=== PATIENT | male | born 1975 | race Two or more races ===

== ENCOUNTER 2019-05-27 05:42 | Inpatient (IN) | payer MEDICAID ==
[~2019-05-27] VITALS: Ht 188 cm; Wt 149.5 kg
[2019-05-27 06:28] LABS: Basophils # (auto) 0.1 uL; Basophils % (auto) 0.7 % (0.0-2.0); Eosinophils # (auto) 0 uL; Eosinophils % (auto) 0.3 % (0.0-7.0); Hematocrit 49.1 % (41.0-53.0); Hemoglobin 16.8 g/dL (13.5-17.5); Lymphocytes # (auto) 3.1 uL; Mean Corpuscular Hemoglobin 29.8 pg (28.0-32.0); Mean Corpuscular Hgb Conc. 34.3 g/dL (32.0-36.0); Mean Corpuscular Volume 86.7 fL (80.0-100.0); Monocytes # (auto) 0.8 uL; Monocytes % (auto) 7.5 % (0.0-12.0); Neutrophils # (auto) 6.6 uL; Neutrophils % (auto) 62.5 % (37.0-80.0); Platelet Count (auto) 168 10^3/uL (140-450); Red Blood Cells 5.66 10^6/uL (4.5-5.90); Red Cell Distribution Width 13.8 % (11.8-14.3); White Blood Cell 10.6 10^3/uL (4.4-10.8)
[2019-05-27 06:46] LABS: Albumin 3.7 g/dL (3.4-5.0); Calcium 8.9 mg/dL (8.5-10.1); Potassium 4.6 mmol/L (3.5-5.1)
[2019-05-27 06:52] LABS: BUN/Creatinine Ratio 9.9; Bilirubin, Total 1.4 mg/dL (0.2-1.0); Total Protein 8.1 g/dL (6.4-8.2)
[2019-05-27] MEDS ORDERED: CLOPIDOGREL BISULFATE 75 MG TAB PO ONE (07:30)
[2019-05-27] MEDS ORDERED: ATORVASTATIN 20 MG TAB PO ONE (07:30)
[2019-05-27] MEDS ORDERED: LIDOCAINE 2%HCL (LOCAL ANESTH.) INJ 20ML MDV ONE ×2 (07:42→09:29)
[2019-05-27] MEDS ORDERED: IOHEXOL 350 MG/ML 100ML IJ ONE ×2 (07:42→09:28)
[2019-05-27 08:02] LABS: INR 1.01 (0.9-1.15); Partial Thromboplastin Time 28.6 sec (23.64-32.05)
[2019-05-27] MEDS ORDERED: ACETAMINOPHEN 500 MG TAB PO PRN (08:45)
[2019-05-27] MEDS ORDERED: MORPHINE SULF INJ 2 MG/ML SYRINGE 1ML IV PRN (08:45)
[2019-05-27] MEDS ORDERED: hydrALAZINE HCL 20 MG/ML VL IV PRN (08:45)
[2019-05-27] MEDS ORDERED: DEXTROSE (50%) 50ML SYRG IV PRN (09:00)
[2019-05-27] MEDS ORDERED: ANGIOMAX 250 MG VIAL IV ONE ×2 (09:28→09:54)
[2019-05-27] MEDS ORDERED: SODIUM CHL 0.9% 50 ML ONE ×2 (09:28→09:54)
[2019-05-27] MEDS ORDERED: MIDAZOLAM HCL 1MG/1ML-2 ML VIAL ONE (09:28)
[2019-05-27] MEDS ORDERED: fentaNYL CITRATE 100 MCG/2 ML VL ONE (09:29)
[2019-05-27] MEDS ORDERED: VERAPAMIL 2.5MG/ML INJ 2ML VIAL IV ONE (09:32)
[2019-05-27] MEDS ORDERED: LISINOPRIL 10 MG TAB PO SCH (10:00)
[2019-05-27] MEDS ORDERED: HEPARIN SODIUM (PORCINE) 5000 UNITS/ML 1ML VIAL ONE (10:02)
[2019-05-27] MEDS ORDERED: EPTIFIBATIDE INJ (2MG/ML) 10ML VIAL IV ONE ×2 (10:44→10:53)
[2019-05-27] MEDS ORDERED: EPTIFIBATIDE DRIP(0.75MG/ML) 100 ML IV ONE ×2 (10:50→15:09)
[2019-05-27] MEDS: SODIUM CHLORIDE 0.9% 1,000 ML IV SCH ×2 (11:00→20:56)
[2019-05-27] MEDS: EPTIFIBATIDE DRIP(0.75MG/ML) 100 ML IV SCH ×3 (11:00→20:56)
[2019-05-27] MEDS: NITROGLYCERIN 0.4 MG SL TAB SL PRN ×2 (11:15→12:05)
[2019-05-27] MEDS ORDERED: OPTISON 3ml Vial for INJ IV ONE (11:35)
[2019-05-27] MEDS ORDERED: KETOROLAC TROMETH 30 MG/ML 1ML VIAL IV ONE (12:30)
[2019-05-27] MEDS: InsuLIN REG 1unit/0.01ml Soln (100units/ml) SC SCH ×3 (14:00→22:06)
[2019-05-27] MEDS: METOPROLOL TARTRATE 25 MG TAB PO SCH ×2 (14:00→22:05)
[2019-05-27] MEDS: ACCU-CHEK COMFORT CURVE STRIP VI SCH ×3 (14:00→22:06)
[2019-05-27] MEDS: FAMOTIDINE 20 MG TAB PO SCH (14:00)
--- NOTE | 2019-05-27 15:21 | NUR ---
PATIENT ARRIVED TO UNIT VIA WHEELCHAIR. ALERT AND ORIENTED X4. DENIES PAIN, SOB OR CHEST PAIN AND DISTRESS. ORIENTED PATIENT TO UNIT STAFF, CALL LIGHT VISITING HOURS ALL QUESTIONS/ CONCERNS ADDRESSED. RIGHT RADIAL DRESSING DRY AND INTACT NO HEMATOMA PRESENT. BED IN LOWEST LOCKED POSITION CALL LIGHT WITHIN REACH. WILL CONTINUE TO MONITOR
[2019-05-27 15:59] VITALS: BP 107/70
[2019-05-27 17:00] VITALS: BP 107/70
--- NOTE | 2019-05-27 18:00 | NUR ---
CRITICAL LAB PATIENT HAS ELEVATED TROPONIN, VITAL AWARE
[2019-05-27] MEDS: MORPHINE SULF INJ 2 MG/ML SYRINGE 1ML IV PRN (18:17)
[2019-05-27] MEDS: ONDANSETRON HCL 4 MG/2 ML VIAL IV PRN (18:23)
--- NOTE | 2019-05-27 18:26 | NUR ---
CHEST PAIN PROTOCOL PERFORMED PATIENT COMPLAINS OF CHEST PAIN. PROTOCOL PERFORMED. EKG SHOWS SINUS RHYTHM. GAVE MORPHINE. PATIENT VERBALIZED PAIN WENT AWAY.
--- NOTE | 2019-05-27 19:00 | NUR ---
END OF SHIFT NOTE PATIENT ALERT AND ORIENTED X4 DENIES SOB AND CP AT THIS TIME. PATIENT STATED HIS SIDE IS HURTING NOW, BUT VERBALIZED THAT IT HURT BEFORE WHICH IS WHY HE ORIGINALLY WENT TO THE ER. BED IN LOWEST LOCKED POSITION CALL LIGHT WITHIN REACH ENDORSE CARE TO NOC RN
--- NOTE | 2019-05-27 19:30 | NUR ---
Opening Shift Note Assumed care of patient, awake and alert. No S/S of distress/SOB or pain. Insructed on POC and to callfor assist PRN, will continue to monitor for changes Q1hr and PRN. Fall and safety precautions in place. Call light within reach.
--- NOTE | 2019-05-27 19:49 | NUR ---
CRITICAL LAB Received call from Pinky in lab, critical lab value trop 20.2. Pt s/p heart cath today, MD Aponte aware per day shift RN report, lab value trending down. Will continue to monitor
[2019-05-27 21:00] VITALS: BP 125/76
--- NOTE | 2019-05-27 21:58 | NUR ---
HOSPITALIST Paged hospitalist regarding patient request for sleeping pill. Awaiting call back.
[2019-05-27] MEDS: ATORVASTATIN 20 MG TAB PO SCH (22:05)
--- NOTE | 2019-05-27 22:34 | NUR ---
HOSPITALIST Received call back from Sagar Sol NP. New orders received, read back and verified. Will input and carry out.
--- NOTE | 2019-05-27 23:00 | NUR ---
EPTIFIBATIDE DRIP Eptifibatide Drip stopped at this time and disconnected from patient per pharmacy protocol text "to run for 12 hrs, drip started in at 1100 in skill labor."
--- NOTE | 2019-05-27 23:17 | NUR ---
CRITICAL LAB Received call from Danis in lab, critical lab value trop 17.2. Pt s/p heart cath today, MD Aponte aware per day shift RN report, lab value trending down. Will continue to monitor
[2019-05-27] MEDS: TEMAZEPAM 15 MG CAP PO PRN (23:49)
[2019-05-28 04:27] LABS: Basophils # (auto) 0 uL; Basophils % (auto) 0.3 % (0.0-2.0); Eosinophils # (auto) 0 uL; Eosinophils % (auto) 0.6 % (0.0-7.0); Hematocrit 44.7 % (41.0-53.0); Hemoglobin 15.7 g/dL (13.5-17.5); Lymphocytes # (auto) 3.1 uL; Lymphocytes % (auto) 36.4 % (10.0-50.0); Mean Corpuscular Hemoglobin 30.4 pg (28.0-32.0); Mean Corpuscular Volume 86.9 fL (80.0-100.0); Monocytes # (auto) 0.8 uL; Monocytes % (auto) 9.2 % (0.0-12.0); Neutrophils # (auto) 4.5 uL; Neutrophils % (auto) 53.5 % (37.0-80.0); Nucleated Red Blood Cells % 0.1 %; Platelet Count (auto) 146 10^3/uL (140-450); Red Blood Cells 5.14 10^6/uL (4.5-5.90); Red Cell Distribution Width 13.6 % (11.8-14.3); White Blood Cell 8.5 10^3/uL (4.4-10.8)
[2019-05-28 04:43] LABS: INR 1.02 (0.9-1.15); Partial Thromboplastin Time 27.7 sec (23.64-32.05)
[2019-05-28 05:00] VITALS: BP_SYST 119; BP_DIAS 2; BP_DIAS 62
[2019-05-28 05:07] LABS: BUN/Creatinine Ratio 16.5; Calcium 8.6 mg/dL (8.5-10.1); Potassium 4.3 mmol/L (3.5-5.1)
[2019-05-28] MEDS: ONDANSETRON HCL 4 MG/2 ML VIAL IV PRN (06:55)
[2019-05-28] MEDS: ACCU-CHEK COMFORT CURVE STRIP VI SCH ×4 (06:55→21:47)
[2019-05-28] MEDS: SODIUM CHLORIDE 0.9% 1,000 ML IV SCH ×2 (06:55→17:00)
[2019-05-28] MEDS: InsuLIN REG 1unit/0.01ml Soln (100units/ml) SC SCH ×4 (06:55→21:47)
--- NOTE | 2019-05-28 07:35 | NUR ---
OPENING SHIFT NOTE PATIENT AWAKE, ALERT AND ORIENTED X4. POC DISCUSSED PATIENT VERBALIZED UNDERSTANDING. DENIES PAIN, SOB OR ANY DISTRESS AT THIS TIME. BED IN LOWEST LOCKED POSITION CALL LIGHT WITHIN REACH. WILL CONTINUE TO MONITOR
[2019-05-28] MEDS: CLOPIDOGREL BISULFATE 75 MG TAB PO SCH (08:56)
[2019-05-28] MEDS: ASPirin-EC 81 mg tab PO SCH (08:57)
[2019-05-28] MEDS: FAMOTIDINE 20 MG TAB PO SCH (08:57)
[2019-05-28] MEDS: LISINOPRIL 10 MG TAB PO SCH (08:57)
[2019-05-28] MEDS: METOPROLOL TARTRATE 25 MG TAB PO SCH ×2 (08:58→21:47)
[2019-05-28 09:00] VITALS: BP 118/73
[2019-05-28 10:30] LABS: Cholesterol 175 mg/dL (< 200); Triglycerides 148 mg/dL (< 150)
[2019-05-28 10:32] LABS: HDL Cholesterol 34 mg/dL (40-59); LDL Cholesterol 122 mg/dL (< 100)
[2019-05-28] MEDS ORDERED: cefTRIAXone 1GM/50ML D5W 50 ML IV ONE (11:30)
[2019-05-28 13:00] VITALS: BP 118/69
[2019-05-28] MEDS: metroNIDAZOLE 500MG/100ML 100 ML IV SCH ×2 (14:01→21:46)
[2019-05-28 16:49] LABS: Urine Bacteria NONE SEEN /hpf (None Seen); Urine Blood Negative /uL (Negative); Urine Specific Gravity 1.008 (1.001-1.035); Urine WBC 1 /hpf (0 - 3)
[2019-05-28 17:00] VITALS: BP 97/71
--- NOTE | 2019-05-28 19:15 | NUR ---
END OF SHIFT NOTE PATIENT ALERT AND ORIENTED X4 DENIES PAIN, SOB OR ANY DISTRESS. BED IN LOWEST LOCKED POSITION CALL LIGHT WITHIN REACH. ENDORSE CARE TO NOC RN
--- NOTE | 2019-05-28 19:30 | NUR ---
Opening Shift Note Assumed care of patient, awake and alert. No S/S of distress/SOB or pain. Insructed on POC and to callfor assist PRN, will continue to monitor for changes Q1hr and PRN. Family at bedside. Fall and safety precautions in place. Call light within reach.
--- NOTE | 2019-05-28 21:15 | NUR ---
ACTIVITY Witnessed patient ambulating self with steady gait around nurse's station at this time. No distress noted. Will continue to monitor
[2019-05-28] MEDS: TEMAZEPAM 15 MG CAP PO PRN (21:47)
[2019-05-28] MEDS: ATORVASTATIN 20 MG TAB PO SCH (21:47)
[2019-05-28 22:00] VITALS: BP 118/70
--- NOTE | 2019-05-28 23:14 | NUR ---
VTACH Received call from [facility] stating patient had 27 second run of Vtach. Tele strips printed. EKG done and vitals taken at this time; EKG showing "normal sinus rhythm," Vitals were HR 72 BP 99/63. Patient placed on 2L NC, HOB raised to approximately 45 degrees. Patient stated he has "a little" SOB and 4/10 chest pain, but denies other symptoms. Patient stated he "felt something or someone touch" his feet," and when he opened his eyes, he stated he "saw" patient in A bed at the foot of B bed. Patient in A bed currently ambulating out in halls. No signs of distress noted when EKG and vitals completed, patient denying symptoms. Curtain around B bed closed completely, informed patient to call RN when symptoms return or if patient in A bed bothers him. Patient verbalized understanding. Will continue to monitor Hospitalist nabeel, received call back from Sagar Sol MARKETING AND PUBLIC RELATIONS MANAGER. Informed him of patient's run of Vtach, EKG results, current vitals, and no current signs of distress or symptoms. Sagar stated to continue to monitor and will come up to floor at later time. EKG and tele strips placed in chart.
[2019-05-29] MEDS: HYDROcodone-ACET 5/325MG TAB PO PRN ×3 (02:08→17:08)
[2019-05-29] MEDS: SODIUM CHLORIDE 0.9% 1,000 ML IV SCH ×3 (04:11→23:00)
[2019-05-29 05:00] VITALS: BP 108/68
[2019-05-29] MEDS: metroNIDAZOLE 500MG/100ML 100 ML IV SCH ×3 (05:52→22:24)
[2019-05-29] MEDS: InsuLIN REG 1unit/0.01ml Soln (100units/ml) SC SCH ×4 (06:34→22:37)
[2019-05-29] MEDS: ACCU-CHEK COMFORT CURVE STRIP VI SCH ×4 (06:34→22:25)
--- NOTE | 2019-05-29 07:40 | NUR ---
OPENING SHIFT NOTE PATIENT UP IN BED ALERT AND ORIENTED X4 DENIES ANY PAIN SOB OR DISTRESS. POC DISCUSSED PATIENT VERBALIZED UNDERSTANDING. BED IN LOWEST LOCKED POSITION CALL LIGHT WITHIN REACH. WILL CONTINUE TO MONITOR
[2019-05-29] MEDS: cefTRIAXone 1GM/50ML D5W 50 ML IV SCH (08:55)
[2019-05-29] MEDS: CLOPIDOGREL BISULFATE 75 MG TAB PO SCH (08:55)
[2019-05-29] MEDS: FAMOTIDINE 20 MG TAB PO SCH (08:55)
[2019-05-29] MEDS: ASPirin-EC 81 mg tab PO SCH (08:55)
[2019-05-29] MEDS: LISINOPRIL 10 MG TAB PO SCH (08:56)
[2019-05-29 08:59] VITALS: BP 102/71
[2019-05-29 09:03] LABS: Basophils # (auto) 0 uL; Basophils % (auto) 0.3 % (0.0-2.0); Eosinophils # (auto) 0.1 uL; Eosinophils % (auto) 0.8 % (0.0-7.0); Hematocrit 42.9 % (41.0-53.0); Hemoglobin 14.7 g/dL (13.5-17.5); Lymphocytes # (auto) 2.3 uL; Lymphocytes % (auto) 30.8 % (10.0-50.0); Mean Corpuscular Hemoglobin 30.1 pg (28.0-32.0); Mean Corpuscular Hgb Conc. 34.4 g/dL (32.0-36.0); Mean Corpuscular Volume 87.7 fL (80.0-100.0); Monocytes # (auto) 0.8 uL; Monocytes % (auto) 10.1 % (0.0-12.0); Neutrophils # (auto) 4.4 uL; Nucleated Red Blood Cells % 0.1 %; Platelet Count (auto) 147 10^3/uL (140-450); Red Blood Cells 4.89 10^6/uL (4.5-5.90); Red Cell Distribution Width 13.5 % (11.8-14.3); White Blood Cell 7.5 10^3/uL (4.4-10.8)
[2019-05-29 09:12] LABS: BUN/Creatinine Ratio 14.9; Calcium 8.5 mg/dL (8.5-10.1)
--- NOTE | 2019-05-29 09:15 | NUR ---
CRITICAL LAB VALUE NOTICE RECEIVED CALL FROM LAB FOR TROPONIN LEVELS OF 8.750. MD GEORGE MADE AWARE. LAB VALUE TRENDING DOWN. NO FURTHER ORDERS.
[2019-05-29 12:00] VITALS: BP 102/66
[2019-05-29] MEDS: METOPROLOL TARTRATE 25 MG TAB PO SCH ×2 (13:03→22:25)
[2019-05-29 17:00] VITALS: BP 113/66
--- NOTE | 2019-05-29 19:10 | NUR ---
END OF SHIFT NOTE PATIENT IN BED ALERT AND ORIENTED X4 DENIES PAIN, SOB OR ANY DISTRESS AT THIS TIME. BED IN LOWEST LOCKED POSITION CALL LIGHT WITHIN REACH ENDORSE CARE TO NOC RN
--- NOTE | 2019-05-29 19:30 | NUR ---
Opening Shift Note Assumed care of patient, awake and alert. No S/S of distress/SOB or pain. Instructed on POC and to call for assist PRN, will continue to monitor for changes Q1hr and PRN.
[2019-05-29] MEDS ORDERED: METOPROLOL TARTRATE 25 MG TAB PO SCH (22:00)
[2019-05-29] MEDS: ATORVASTATIN 20 MG TAB PO SCH (22:25)
[2019-05-29] MEDS: TEMAZEPAM 15 MG CAP PO PRN (22:37)
[2019-05-29 23:47] VITALS: BP 126/70
[2019-05-30 04:34] LABS: Basophils # (auto) 0 uL; Basophils % (auto) 0.3 % (0.0-2.0); Eosinophils # (auto) 0.1 uL; Eosinophils % (auto) 1.5 % (0.0-7.0); Hematocrit 40.5 % (41.0-53.0); Hemoglobin 14.3 g/dL (13.5-17.5); Lymphocytes # (auto) 2.7 uL; Lymphocytes % (auto) 37.9 % (10.0-50.0); Mean Corpuscular Hemoglobin 30.4 pg (28.0-32.0); Mean Corpuscular Hgb Conc. 35.3 g/dL (32.0-36.0); Monocytes # (auto) 0.6 uL; Monocytes % (auto) 8.7 % (0.0-12.0); Neutrophils # (auto) 3.7 uL; Neutrophils % (auto) 51.6 % (37.0-80.0); Nucleated Red Blood Cells % 0.1 %; Platelet Count (auto) 164 10^3/uL (140-450); Red Blood Cells 4.71 10^6/uL (4.5-5.90); Red Cell Distribution Width 13.3 % (11.8-14.3); White Blood Cell 7.2 10^3/uL (4.4-10.8)
[2019-05-30 05:08] LABS: Calcium 8.4 mg/dL (8.5-10.1)
[2019-05-30 05:16] LABS: BUN/Creatinine Ratio 17.6
--- NOTE | 2019-05-30 05:41 | NUR ---
RECEIVED CRITICAL TROP FROM LAB - 7.73. TRENDING DOWN FROM 8.75.
[2019-05-30 06:03] VITALS: BP 116/80
[2019-05-30] MEDS: ACCU-CHEK COMFORT CURVE STRIP VI SCH ×4 (06:16→23:03)
[2019-05-30] MEDS: metroNIDAZOLE 500MG/100ML 100 ML IV SCH ×3 (06:16→22:59)
[2019-05-30] MEDS: InsuLIN REG 1unit/0.01ml Soln (100units/ml) SC SCH ×4 (06:22→23:02)
[2019-05-30] MEDS: MORPHINE SULF INJ 2 MG/ML SYRINGE 1ML IV PRN (08:27)
[2019-05-30] MEDS: ONDANSETRON HCL 4 MG/2 ML VIAL IV PRN (08:28)
[2019-05-30 09:00] VITALS: BP 114/70
[2019-05-30] MEDS: SODIUM CHLORIDE 0.9% 1,000 ML IV SCH ×2 (09:00→23:03)
[2019-05-30] MEDS: cefTRIAXone 1GM/50ML D5W 50 ML IV SCH (09:55)
[2019-05-30] MEDS: FAMOTIDINE 20 MG TAB PO SCH (09:57)
[2019-05-30] MEDS: METOPROLOL TARTRATE 25 MG TAB PO SCH ×2 (09:57→23:01)
[2019-05-30] MEDS: ASPirin-EC 81 mg tab PO SCH (09:58)
[2019-05-30] MEDS: CLOPIDOGREL BISULFATE 75 MG TAB PO SCH (09:58)
[2019-05-30] MEDS: LISINOPRIL 5 MG TAB PO SCH (10:02)
[2019-05-30] MEDS: metFORMIN HYDROCHLORIDE 500 MG TAB PO SCH (12:42)
[2019-05-30 13:00] VITALS: BP 109/74
--- NOTE | 2019-05-30 14:50 | NUR ---
Nutrition Assessment Notes please see attached link for complete assessment Est. Needs ABW 115 [id number] kcal (17-20 kcal/kgBW), 92-115 gms pro (0.8-1.0 gms/kgBW). Will continue to monitor pertinent labs and reassess nutrient need prn Addendum: 05/30/19 at [address] Amended: Links added.
[2019-05-30 17:22] VITALS: BP 110/68
--- NOTE | 2019-05-30 19:35 | NUR ---
Opening Shift Note Report received from day shift RN. Assumed care of patient. Patient awake sitting in bed, alert x4. No S/S of distress/SOB noted. Family at bedside. Bed locked, left in lowest position, side rails up x2, and call light left within reach. Instructed on POC and to call for assist PRN, will continue to monitor for changes Q1hr and PRN.
[2019-05-30 22:00] VITALS: BP 118/80
[2019-05-30] MEDS: ATORVASTATIN 20 MG TAB PO SCH (22:59)
[2019-05-31] MEDS: MORPHINE SULF INJ 2 MG/ML SYRINGE 1ML IV PRN ×2 (00:22→05:29)
[2019-05-31 05:00] VITALS: BP 119/77
[2019-05-31] MEDS: metroNIDAZOLE 500MG/100ML 100 ML IV SCH ×3 (05:26→22:20)
[2019-05-31] MEDS: SODIUM CHLORIDE 0.9% 1,000 ML IV SCH ×2 (05:34→15:03)
[2019-05-31] MEDS: InsuLIN REG 1unit/0.01ml Soln (100units/ml) SC SCH ×4 (06:46→22:23)
[2019-05-31] MEDS: ACCU-CHEK COMFORT CURVE STRIP VI SCH ×4 (06:46→22:23)
[2019-05-31 08:00] VITALS: BP 111/69
[2019-05-31] MEDS: FAMOTIDINE 20 MG TAB PO SCH (09:43)
[2019-05-31] MEDS: cefTRIAXone 1GM/50ML D5W 50 ML IV SCH (09:43)
[2019-05-31] MEDS: CLOPIDOGREL BISULFATE 75 MG TAB PO SCH (09:43)
[2019-05-31] MEDS: ASPirin-EC 81 mg tab PO SCH (09:44)
[2019-05-31] MEDS: METOPROLOL TARTRATE 25 MG TAB PO SCH ×2 (09:44→22:22)
[2019-05-31] MEDS: LISINOPRIL 5 MG TAB PO SCH (09:44)
--- NOTE | 2019-05-31 09:58 | NUR ---
[facility] life vest order faxed to [facility] along with supporting clinical documentation.
--- NOTE | 2019-05-31 10:58 | NUR ---
PATIENT STATES FEELING SHORTNESS OF BREATH. OXYGEN LEVEL 97% NO SIGNS OF DISTRESS.
[2019-05-31] MEDS: metFORMIN HYDROCHLORIDE 500 MG TAB PO SCH (11:48)
[2019-05-31 12:00] VITALS: BP 101/71
[2019-05-31] MEDS ORDERED: RANOLAZINE ER 500 MG TAB PO ONE (12:30)
[2019-05-31 17:00] VITALS: BP 112/74
--- NOTE | 2019-05-31 19:30 | NUR ---
Opening Shift Note Report received from day shift RN. Assumed care of patient. Patient awake sitting in bed and alert x4. No S/S of distress/SOB noted. Patient denies pain at this time. Patient has life vest in place. Patient on 2 L O2 via NC, respirations even and unlabored. Bed locked, left in lowest position, side rails up x2, and call light left within reach. Instructed on POC and to call for assist PRN, will continue to monitor for changes Q1hr and PRN.
[2019-05-31] MEDS: TEMAZEPAM 15 MG CAP PO PRN (21:09)
[2019-05-31 22:00] VITALS: BP 111/67
[2019-05-31] MEDS: ATORVASTATIN 20 MG TAB PO SCH (22:20)
[2019-05-31] MEDS: RANOLAZINE ER 500 MG TAB PO SCH (22:20)
[2019-06-01] MEDS: SODIUM CHLORIDE 0.9% 1,000 ML IV SCH (04:41)
[2019-06-01 05:00] VITALS: BP 105/72
[2019-06-01] MEDS: metroNIDAZOLE 500MG/100ML 100 ML IV SCH (06:10)
[2019-06-01] MEDS: InsuLIN REG 1unit/0.01ml Soln (100units/ml) SC SCH ×3 (06:28→17:00)
[2019-06-01] MEDS: ACCU-CHEK COMFORT CURVE STRIP VI SCH ×3 (06:28→17:00)
[2019-06-01 08:00] VITALS: BP 114/75
[2019-06-01 08:58] VITALS: BP 114/75
[2019-06-01] MEDS: ASPirin-EC 81 mg tab PO SCH (09:17)
[2019-06-01] MEDS: cefTRIAXone 1GM/50ML D5W 50 ML IV SCH (09:17)
[2019-06-01] MEDS: RANOLAZINE ER 500 MG TAB PO SCH (09:18)
[2019-06-01] MEDS: METOPROLOL TARTRATE 25 MG TAB PO SCH (09:18)
[2019-06-01] MEDS: FAMOTIDINE 20 MG TAB PO SCH (09:18)
[2019-06-01] MEDS: CLOPIDOGREL BISULFATE 75 MG TAB PO SCH (09:18)
[2019-06-01] MEDS: LISINOPRIL 5 MG TAB PO SCH (09:19)
--- NOTE | 2019-06-01 11:19 | NUR ---
Dr. Alanis at bed side to see pt, doctor discussed the plan of care with pt.
--- NOTE | 2019-06-01 11:50 | NUR ---
Called and spoke to Maria Del Rosario / social work therapist regarding the social work therapist consult order, as per Maria Del Rosario there are no programs to help pt pay for his medications, that for the glucometer and the test strips have the doctor write a prescription and inform the pt that [facility] has pt coupons where the glucometer and the test strips are given to pt's free, also for the prescribed medications just have doctor write on the prescriptions ok to use generic medications and the pharmacy will provide pt with the cheapest generic form to the pt, and to recommend pt to go to [facility] since [facility] has the cheapest generic medications. Doctor and pt informed. Called several pharmacies and provided pt with the prices on the generic medications.
[2019-06-01 11:59] VITALS: BP 108/70
[2019-06-01] MEDS: metFORMIN HYDROCHLORIDE 500 MG TAB PO SCH (12:32)
[2019-06-01 16:32] VITALS: BP 113/76
[2019-06-01 16:43] VITALS: BP 108/70
--- NOTE | 2019-06-01 17:05 | NUR ---
CALLED AND SPOKE TO DR. CLARK / TAIL TRIMMER PER DR. ZENDEJAS'S REQUEST, AND ASKED IF PT SHOULD CONTINUE ON THE METOPROLOL SINCE PT'S HEART RATE HAS BEEN ON THE 50s, PER DR. CLARK PT SHOULD CONTINUE ON THE METOPROLOL SINCE THE PT IS GOING TO NEED AN AICD IT IS BETTER THAT THE HEART RATE IS LOW.
--- NOTE | 2019-06-01 17:35 | NUR ---
Discharge instructions given as ordered. Encourage to follow up with PMD, Dr. Aponte, and Dr. Talley as instructed. Pt received Maria Del Rosario Douglas / pt continuum dog day care attendant, and Robbi / medical information. All questions and concerns addressed. Patient verbalized understanding. Medication reconciliation form completed and copy given to patient. No home medications held in Pharmacy, and no needed vaccines to be given. IV removed with catheter intact, pressure dressing applied. Telemetry unit returned to [facility].
--- NOTE | 2019-06-01 18:00 | NUR ---
Patient offered to take him out on a wheelchair, pt requested to walk, pt walked out of the hospital with all personal belongings, as per pt family member waiting out in front of the hospital. No distress noted at time of departure.
--- NOTE | 2019-06-04 17:43 | NUR ---
functional manager 06/01/19 While functional manager I received a page from Christiane CAR stating patient has no insurance and needs help for a diabetic meter and supplies. I informed Christiane to have write a prescription for what he needs and [facility] coupons for a free meter. Christiane verbalized understanding. Addendum: 06/04/19 at 1746 by Maria Del Rosario PRINCE Amended: Links added.
== END 2019-06-01 18:00 | disposition home or self-care (01) | DRG 174 ==
LOC: ER 05:42 → CENTRAL 05:43 → TELE-CENTR 15:49
PROVIDERS: ADMIT Nurse Practitioner Acute Care; ATTEND Internal Medicine Pulmonary Disease
PROC: 4A023N7 Measurement of Cardiac Sampling and Pressure, Left Heart, Percutaneous Approach (ICD-10-PCS; principal; 2019-05-27)
PROC: 027035Z Dilation of Coronary Artery, One Artery with Two Drug-eluting Intraluminal Devices, Percutaneous Approach (ICD-10-PCS; 2019-05-27)
PROC: B2111ZZ Fluoroscopy of Multiple Coronary Arteries using Low Osmolar Contrast (ICD-10-PCS; 2019-05-27)
PROC: B2151ZZ Fluoroscopy of Left Heart using Low Osmolar Contrast (ICD-10-PCS; 2019-05-27)
PROC: 3E073PZ Introduction of Platelet Inhibitor into Coronary Artery, Percutaneous Approach (ICD-10-PCS; 2019-05-27)
DX: I21.4 Non-ST elevation (NSTEMI) myocardial infarction (principal); I47.2 Ventricular tachycardia; I50.43 Acute on chronic combined systolic (congestive) and diastolic (congestive) heart failure; K85.90 Acute pancreatitis without necrosis or infection, unspecified; E66.01 Morbid (severe) obesity due to excess calories; E11.65 Type 2 diabetes mellitus with hyperglycemia; K81.9 Cholecystitis, unspecified; N12 Tubulo-interstitial nephritis, not specified as acute or chronic; E87.1 Hypo-osmolality and hyponatremia; Z68.41 Body mass index [BMI] 40.0-44.9, adult; I25.5 Ischemic cardiomyopathy; Z82.49 Family history of ischemic heart disease and other diseases of the circulatory system; Z83.3 Family history of diabetes mellitus
CPT/HCPCS: 36415; 71045; 74176; 80048; 80053; 80061; 81001; 82150; 82962; 83036; 83690; 83735; 83880; 84439; 84443; 84484; 85025; 85610; 85730; 86141; 86850; 86900; 86901; 87086; 92928; 93005; 93306; 93458; 94761; 99152; 99153; 99291; C1874; C1887; G0378; J0696; J1815; J1885; J2250; J2405; J3490; Q9956

== ENCOUNTER 2019-11-10 20:18 | Emergency (ER) | payer MEDICAID ==
[~2019-11-10] VITALS: Ht 185.4 cm; Wt 145.1 kg
[2019-11-10 21:12] LABS: Basophils # (auto) 0 uL; Basophils % (auto) 0.4 % (0.0-2.0); Eosinophils # (auto) 0.2 uL; Eosinophils % (auto) 2.1 % (0.0-7.0); Hematocrit 43.4 % (41.0-53.0); Hemoglobin 15.3 g/dL (13.5-17.5); Lymphocytes # (auto) 3.4 uL; Lymphocytes % (auto) 44.9 % (10.0-50.0); Mean Corpuscular Hemoglobin 30.5 pg (28.0-32.0); Mean Corpuscular Hgb Conc. 35.3 g/dL (32.0-36.0); Mean Corpuscular Volume 86.3 fL (80.0-100.0); Monocytes # (auto) 0.5 uL; Monocytes % (auto) 6.3 % (0.0-12.0); Neutrophils # (auto) 3.5 uL; Neutrophils % (auto) 46.3 % (37.0-80.0); Nucleated Red Blood Cells % 0.1 %; Platelet Count (auto) 144 10^3/uL (140-450); Red Blood Cells 5.02 10^6/uL (4.5-5.90); Red Cell Distribution Width 13.7 % (11.8-14.3); White Blood Cell 7.5 10^3/uL (4.4-10.8)
[2019-11-10 21:37] LABS: Albumin 3.8 g/dL (3.4-5.0); Anion Gap 3 (5-15); Blood Urea Nitrogen 11 mg/dL (7-18); Calcium 8.8 mg/dL (8.5-10.1); Carbon Dioxide 29 mmol/L (21-32); Chloride 106 mmol/L (98-107); Glucose 149 mg/dL (74-106); Potassium 4.2 mmol/L (3.5-5.1); Sodium 138 mmol/L (136-145)
[2019-11-10 21:44] LABS: Alanine Aminotransferase 21 U/L (16-61); Alkaline Phosphatase 77 U/L (45-117); Aspartate Aminotransferase 12 U/L (15-37); BUN/Creatinine Ratio 14.1; Bilirubin, Total 0.8 mg/dL (0.2-1.0); GFR African American 138 mL/min; GFR Non-African American 114 mL/min; Total Protein 7.3 g/dL (6.4-8.2)
[2019-11-11 05:59] VITALS: BP 131/85
[2019-11-11 06:53] LABS: INR 1.06 (0.9-1.15); Partial Thromboplastin Time 27.1 sec (23.64-32.05)
== END 2019-11-11 07:55 | disposition home or self-care (01) ==
LOC: ER 20:18
DX: I50.9 Heart failure, unspecified (principal); M47.812 Spondylosis without myelopathy or radiculopathy, cervical region; I25.2 Old myocardial infarction; E11.9 Type 2 diabetes mellitus without complications; R11.2 Nausea with vomiting, unspecified
CPT/HCPCS: 36415; 71045; 72125; 80053; 83880; 84484; 85025; 85379; 85610; 85730; 93005

== ENCOUNTER → 2020-04-08 | Emergency (ER) | payer MEDICAID ==
[~2020-04-08] VITALS: Ht 188 cm; Wt 145.6 kg
[~2020-04-08] MED LIST: ASPirin 81 mg TAB PO ONE; FAMOTIDINE 20 MG TAB PO ONE; ONDANSETRON ODT 4 MG TAB PO ONE; cefTRIAXone SOD 1,000 MG VL IM ONE
[2020-04-08 17:08] LABS: Basophils # (auto) 0 10 ^3/uL (0-0.2); Basophils % (auto) 0.4 % (0.0-2.0); Eosinophils # (auto) 0 10 ^3/uL (0-0.8); Eosinophils % (auto) 0.9 % (0.0-7.0); Hematocrit 49.6 % (41.0-53.0); Hemoglobin 16.9 g/dL (13.5-17.5); Lymphocytes # (auto) 1.5 10 ^3/uL (0.4-5.4); Lymphocytes % (auto) 31.4 % (10.0-50.0); Mean Corpuscular Hemoglobin 29.6 pg (28.0-32.0); Mean Corpuscular Hgb Conc. 34.1 g/dL (32.0-36.0); Mean Corpuscular Volume 86.7 fL (80.0-100.0); Monocytes # (auto) 0.4 10 ^3/uL (0-1.3); Monocytes % (auto) 8.8 % (0.0-12.0); Neutrophils # (auto) 2.8 10 ^3/uL (1.6-8.6); Neutrophils % (auto) 58.5 % (37.0-80.0); Nucleated Red Blood Cells % 0.3 %; Platelet Count (auto) 147 10^3/uL (140-450); Red Blood Cells 5.72 10^6/uL (4.5-5.90); Red Cell Distribution Width 13.3 % (11.8-14.3); White Blood Cell 4.8 10^3/uL (4.4-10.8)
[2020-04-08 17:22] LABS: INR 1.04 (0.9-1.15); Partial Thromboplastin Time 27.3 sec (23.64-32.05)
[2020-04-08 17:27] LABS: Alanine Aminotransferase 68 U/L (16-61); Albumin 4.1 g/dL (3.4-5.0); Anion Gap 7 (5-15); Aspartate Aminotransferase 34 U/L (15-37); BUN/Creatinine Ratio 14.3; Blood Urea Nitrogen 17 mg/dL (7-18); Calcium 8.8 mg/dL (8.5-10.1); Carbon Dioxide 25 mmol/L (21-32); Chloride 103 mmol/L (98-107); GFR African American 85 mL/min; GFR Non-African American 70 mL/min; Glucose 244 mg/dL (74-106); Magnesium 1.9 mg/dL (1.6-2.6); Potassium 3.9 mmol/L (3.5-5.1); Sodium 135 mmol/L (136-145)
[2020-04-08 17:31] LABS: Alkaline Phosphatase 87 U/L (45-117); Bilirubin, Total 0.9 mg/dL (0.2-1.0); Total Protein 8.1 g/dL (6.4-8.2)
[2020-04-09 01:53] VITALS: BP 138/84
== END | disposition home or self-care (01) ==
LOC: ER 16:35
DX: U07.1 COVID-19 (principal); K29.70 Gastritis, unspecified, without bleeding; J06.9 Acute upper respiratory infection, unspecified; R74.0 Nonspecific elevation of levels of transaminase and lactic acid dehydrogenase [LDH]; E11.9 Type 2 diabetes mellitus without complications; I25.2 Old myocardial infarction; Z98.61 Coronary angioplasty status
CPT/HCPCS: 36415; 71046; 80053; 83735; 83880; 84443; 84484; 85025; 85610; 85730; 87070; 87635; 87804; 87880; 93005; 96372; 99285; U0003; J0696; Q0162

== ENCOUNTER → 2022-03-15 | Day surgery (SDC) | payer MEDICAID ==
[~2022-03-15] VITALS: Ht 188 cm; Wt 140.6 kg
[~2022-03-15] MED LIST changes: +ACCU-CHEK COMFORT CURVE STRIP VI ONE; +ASPI-378 OR; -ASPirin 81 mg TAB PO ONE; +BUPIVACAINE HCL 50 ML ONE; +DexAMETHasone SOD PHOS 10MG/1ML VIAL INJ ONE; +EMPA1TAB PO; -FAMOTIDINE 20 MG TAB PO ONE; +METF-370 PO; +METOCLOPRAMIDE HCL 5MG/ml INJ 2ml VIAL IV PRN; +MIDAZOLAM HCL 2MG/2ML 2ml VIAL (1mg/ml) ONE; +ONDANSETRON HCL 4 MG/2 ML VIAL ONE; -ONDANSETRON ODT 4 MG TAB PO ONE; +PROPOFOL 10 MG/ML 20 ML IV ONE; +ROCURONIUM 10MG/ML 10ML VIAL IV ONE; +SODIUM CHLORIDE LOCK 10 ML ONE; +ceFAZolin 1GM/50ML 100 ML IV ONE; -cefTRIAXone SOD 1,000 MG VL IM ONE; +fentaNYL CITRATE 100 MCG/2 ML VL ONE
[2022-03-15] MEDS: MORPHINE SULFATE 4 MG/ML SYR/VIAL IV PRN ×3 (10:37→11:37)
[2022-03-15] MEDS: HYDROmorphone HCL 2 MG/ML VL/or syr IV PRN ×4 (10:47→11:22)
[2022-03-15 11:50] VITALS: BP 123/89
== END | disposition home or self-care (01) ==
LOC: SUR 08:10
PROVIDERS: ATTEND Orthopaedic Surgery Sports Medicine
DX: S83.242A Other tear of medial meniscus, current injury, left knee, initial encounter (principal); M94.262 Chondromalacia, left knee; I11.0 Hypertensive heart disease with heart failure; E11.9 Type 2 diabetes mellitus without complications; I25.10 Atherosclerotic heart disease of native coronary artery without angina pectoris; I25.2 Old myocardial infarction; E78.5 Hyperlipidemia, unspecified; Z95.5 Presence of coronary angioplasty implant and graft; Z68.41 Body mass index [BMI] 40.0-44.9, adult; Z83.3 Family history of diabetes mellitus; Z20.822 Contact with and (suspected) exposure to COVID-19; X58.XXXA Exposure to other specified factors, initial encounter; Y92.89 Other specified places as the place of occurrence of the external cause; Y93.89 Activity, other specified; Y99.8 Other external cause status
CPT/HCPCS: 29882; 82962; C1713; J0690; J1100; J1170; J2250; J2270; J2405; J2704; J3010; J3490; U0003

== ENCOUNTER 2023-06-04 13:28 | Emergency (ER) | payer MEDICAID ==
[~2023-06-04] VITALS: Ht 185.4 cm; Wt 124.0 kg
[~2023-06-04 13:28] MED LIST changes: -ACCU-CHEK COMFORT CURVE STRIP VI ONE; -BUPIVACAINE HCL 50 ML ONE; -DexAMETHasone SOD PHOS 10MG/1ML VIAL INJ ONE; -METOCLOPRAMIDE HCL 5MG/ml INJ 2ml VIAL IV PRN; -MIDAZOLAM HCL 2MG/2ML 2ml VIAL (1mg/ml) ONE; -ONDANSETRON HCL 4 MG/2 ML VIAL ONE; -PROPOFOL 10 MG/ML 20 ML IV ONE; -ROCURONIUM 10MG/ML 10ML VIAL IV ONE; -SODIUM CHLORIDE LOCK 10 ML ONE; -ceFAZolin 1GM/50ML 100 ML IV ONE; -fentaNYL CITRATE 100 MCG/2 ML VL ONE
[2023-06-04 14:27] LABS: Basophils # (auto) 0 10 ^3/uL (0-0.2); Basophils % (auto) 0.4 % (0.0-2.0); Eosinophils # (auto) 0.3 10 ^3/uL (0-0.8); Eosinophils % (auto) 4.5 % (0.0-7.0); Hematocrit 46.2 % (41.0-53.0); Hemoglobin 15.9 g/dL (13.5-17.5); Lymphocytes # (auto) 2.2 10 ^3/uL (0.4-5.4); Lymphocytes % (auto) 31.8 % (10.0-50.0); Mean Corpuscular Hgb Conc. 34.5 g/dL (32.0-36.0); Mean Corpuscular Volume 87.1 fL (80.0-100.0); Monocytes # (auto) 0.4 10 ^3/uL (0-1.3); Monocytes % (auto) 6.5 % (0.0-12.0); Neutrophils # (auto) 3.9 10 ^3/uL (1.6-8.6); Neutrophils % (auto) 56.8 % (37.0-80.0); Nucleated Red Blood Cells % 0.2 %; White Blood Cell 6.8 10^3/uL (4.4-10.8)
[2023-06-04 14:39] LABS: Albumin 3.8 g/dL (3.4-5.0); BUN/Creatinine Ratio 7.8 (10.0-20.0); Calcium 8.7 mg/dL (8.5-10.1); Potassium 3.6 mmol/L (3.5-5.1)
[2023-06-04 14:53] LABS: Urine Bacteria NONE SEEN /hpf (None Seen); Urine Blood Negative /uL (Negative); Urine Clarity Clear (Clear); Urine Color Yellow (Yellow); Urine Protein, UAD TRACE (Negative); Urine Specific Gravity 1.029 (1.001-1.035); Urine Urobilinogen Normal (Negative); Urine WBC 11 /hpf (0 - 3); Urine pH 5.5 (5.0-8.0)
[2023-06-04] MEDS ORDERED: PER60TP TOP ×3 (16:58→17:43)
[2023-06-04] MEDS ORDERED: HYDR-3682 PO (16:58)
[2023-06-04] MEDS ORDERED: CEPH500C PO ×3 (16:58→17:43)
[2023-06-04 17:43] VITALS: BP 138/88; PULSE 82; RESP 18; TEMP 97.5; O2SAT 98
== END 2023-06-04 17:46 | disposition home or self-care (01) ==
LOC: ER 13:28
DX: S80.862A Insect bite (nonvenomous), left lower leg, initial encounter (principal); S80.861A Insect bite (nonvenomous), right lower leg, initial encounter; S30.861A Insect bite (nonvenomous) of abdominal wall, initial encounter; S30.860A Insect bite (nonvenomous) of lower back and pelvis, initial encounter; I25.10 Atherosclerotic heart disease of native coronary artery without angina pectoris; E11.9 Type 2 diabetes mellitus without complications; I25.2 Old myocardial infarction; Z79.82 Long term (current) use of aspirin; Z79.899 Other long term (current) drug therapy; W57.XXXA Bitten or stung by nonvenomous insect and other nonvenomous arthropods, initial encounter; Y93.89 Activity, other specified; Y92.89 Other specified places as the place of occurrence of the external cause; Y99.8 Other external cause status
CPT/HCPCS: 36415; 80053; 81001; 84484; 85025; 93005

== ENCOUNTER 2024-10-14 13:13 | Inpatient (IN) | payer MEDICAID ==
[~2024-10-14] VITALS: Ht 188 cm; Wt 124.3 kg
[~2024-10-14 13:13] MED LIST changes: +CEPH500C PO; +HYDR-3682 PO; +PER60TP TOP
--- NOTE | 2024-10-14 14:51 | DVH ---
EXAM: XY CHEST PORTABLE TECHNIQUE: Single frontal chest radiograph CLINICAL HISTORY: sob COMPARISON: None Findings/Impression: Frontal chest radiograph demonstrates no acute osseous or superficial soft tissue abnormalities. The trachea is midline. The cardiac silhouette and mediastinum are within normal limits. No pneumothorax, pleural effusions, or consolidations.
--- NOTE | 2024-10-14 17:21 | ED.PDOC ---
History of Present Illness HPI Comments 49 y/o M presents with c/o chest pain, shortness of breath and fever, today. Patient endorses on unprovoked onset of symptoms for the past 5x days. He states, today, on having a temperature of 104.0F and having positive sick contact, recently. He denies having any palpitations, dizziness, lightheadedness, fever, chills, or other associated symptoms or modifiers at this time. Chief Complaint: Shortness of Breath Time Seen by MD: 17:00 Primary Care Provider: RG Patel Notes: Nurses Notes, Medications, Allergies Allergies: Coded Allergies: NO KNOWN ALLERGIES (Unverified , 05/27/19) Home Meds Active Scripts Cephalexin Monohydrate (Cephalexin) 500 Mg Cap, 1 CAP PO QID for 10 Days, #40 CAP Prov:NEEL MARTIN PAC 06/04/23 Permethrin (Elimite) 5 % Cre, 2 APPLIC TOP ONCE, #60 GRAMS 1 Refill Repeat procedure in 9 days. Prov:NEEL MARTIN 06/04/23 Hydroxyzine Hcl (Hydroxyzine Hcl) 25 Mg Tab, 1 TAB PO TID, #20 TAB Prov:NEEL MARTIN PAC 06/04/23 Reported Medications Empagliflozin (Jardiance) 10 Mg Tab, 10 MG PO, TAB 03/11/22 Metformin Hydrochloride (Metformin Hcl) 500 Mg Tab, 500 MG PO BID, TAB 03/11/22 Aspirin (BRIA ASPIRIN EC LOW DOSE) 81 Mg Tab, 81 MG OR, TAB 03/11/22 Information Source: Patient Mode of Arrival: Ambulatory Severity: Moderate Timing: Days Duration: Since onset Prehospital treatment: None Past Medical History PAST MEDICAL HISTORY: CAD, DM, OH Surgical History: PTCA Family History Family History: Reviewed,noncontributory to illness Social History Smoker: Non-Smoker Alcohol: Denies ETOH Use Drugs: Denies Drug Use Lives In: Home Constitutional: reports: fever Respiratory: reports: shortness of breath Cardiovascular: reports: chest pain All Other Systems: Reviewed and Negative (negative unless otherwise stated above or in HPI) Physical Exam General Appearance: Moderate Distress HEENT: Normal ENT Inspection, Pharynx Normal, TMs Normal Neck: Full Range of Motion, Non-Tender, Normal, Normal Inspection Respiratory: Chest Non-Tender, No Accessory Muscle Use, Other (Coarse breath sounds) Cardiovascular: No Edema, No JVD, No Murmur, No Gallop, Normal Peripheral Pulses, Regular Rate/Rhythm Breast Exam: Deferred Gastrointestinal: No Organomegaly, Non Tender, No Pulsatile Mass, Normal Bowel Sounds, Soft Genitalia: Deferred Pelvic: Deferred Rectal: Deferred Extremities: No calf tenderness, Normal capillary refill, Normal inspection, Normal range of motion, Non-tender, No pedal edema Musculoskeletal : Apperance: Normal Neurologic: Alert, fixer boarding room II-XII nml as Tested, No Motor Deficits, Normal Affect, Normal Mood, No Sensory Deficits Cerebellar Function: Normal Reflexes: Normal Skin: Dry, Normal Color, Warm Peripheral Pulses: 3+ Radial (R), 3+ Radial (L) Lymphatic: No Adenopathy Was a procedure done? Was a procedure done?: No Differential Dx Considerations may include: OH, ACS, PE, PNA, viral syndrome X-Ray, Labs, Meds, VS Vital Signs Date Time Temp Pulse Resp B/P (MAP) Pulse Ox O2 Delivery O2 Flow Rate FiO2 10/14/24 13:45 98.7 89 20 130/89 (103) 97 Lab Test 10/14/24 15:27 Range/Units D-Dimer, Quantitative 0.53 H 0.0-0.49 mg/L [place] [id number] Ph: [phone] DIAGNOSTIC IMAGING Diagnostic Imaging Report : [id number] Signed PATIENT: DANNY HERRING ACCT: [id number] UNIT: [id number] : 1975 LOC: ER ROOM / BED: / AGE / SEX: 49 / M ADM STATUS: REG ER SERVICE 1420 ORDERING PHYSICIAN: SABIHA NOBLES MD PROCEDURE(s): CXRP - CHEST PORTABLE REASON: sob ORDER NUMBER(s): [id number], ACCESSION NUMBER(s): [id number] EXAM: XY CHEST PORTABLE TECHNIQUE: Single frontal chest radiograph CLINICAL HISTORY: sob COMPARISON: None Findings/Impression: Frontal chest radiograph demonstrates no acute osseous or superficial soft tissue abnormalities. The trachea is midline. The cardiac silhouette and mediastinum are within normal limits. No pneumothorax, pleural effusions, or consolidations. ATED BY: JOSELIN CHUN DO DICTATED DATE/TIME: 10/14/24 1448 SIGNED BY: JOSELIN CHUN DO SIGNED DATE/TIME: 10/14/24 1448 CC: Patient alert. Complaining of chest pain. Vitals stable. Answering all questions. Continues to have chest pain. History of coronary artery disease. Was given aspirin. Has coarse breath sounds. Was given steroid. Reviewed his history. Explained to the patient. Continue cardiac monitoring. Echocardiogram. Cardiology consultation. Time of 1ST Reevaluation: 17:30 Reevaluation 1ST: Unchanged Patient Education/Counseling: Diagnosis, Treatment Family Education/Counseling: No Family Present Departure 1 Departure Time of Disposition: 17:26 Impression: Primary Impression: Chest pain of unknown etiology Additional Impression: Pleurisy Disposition: ADMITTED INPATIENT Admit to: Med Surg Condition: Guarded Critical Care Note Critical Care Time?: Yes (45 min-critical care time only) Stability Stability form required: No Heart Score Heart Score: Heart Score Response (Comments) Value History Slightly Suspicious 0 EKG N/A 0 Age 45-64 1 Risk Factors >3 or Hx ASHD 2 Troponin Normal limit 0 Total 3 I personally scribed for SABIHA NOBLES MD ([email or web address]) on 10/14/24 at 17:21. Electronically submitted by Carlos Mcgraw ([email or web address]). SABIHA NOBLES MD Oct 14, 2024 17:21
[2024-10-14] MEDS: methylPREDNISolone SOD SUCC 125 MG/2 ML VL IV ONE (18:11)
[2024-10-14] MEDS: ASPirin 325 MG TAB PO ONE (18:11)
[2024-10-14] MEDS: ENOXAPARIN SOD 120 MG/0.8 ML SYRINGE SC ONE (18:13)
[2024-10-14 18:14] VITALS: PULSE 84; RESP 19; O2SAT 94
[2024-10-14 19:40] LABS: Basophils # (auto) 0 10 ^3/uL (0-0.2); Basophils % (auto) 0.4 % (0.0-2.0); Eosinophils # (auto) 0.1 10 ^3/uL (0-0.8); Eosinophils % (auto) 2.4 % (0.0-7.0); Hematocrit 50.1 % (41.0-53.0); Hemoglobin 17.3 g/dL (13.5-17.5); Lymphocytes # (auto) 1.2 10 ^3/uL (0.4-5.4); Lymphocytes % (auto) 26.2 % (10.0-50.0); Mean Corpuscular Hemoglobin 30.4 pg (28.0-32.0); Mean Corpuscular Hgb Conc. 34.5 g/dL (32.0-36.0); Mean Corpuscular Volume 87.9 fL (80.0-100.0); Monocytes # (auto) 0.4 10 ^3/uL (0-1.3); Monocytes % (auto) 8.7 % (0.0-12.0); Neutrophils # (auto) 2.9 10 ^3/uL (1.6-8.6); Neutrophils % (auto) 62.3 % (37.0-80.0); Nucleated Red Blood Cells % 0.5 %; Platelet Count (auto) 150 10^3/uL (140-450); Red Cell Distribution Width 13.3 % (11.8-14.3); White Blood Cell 4.7 10^3/uL (4.4-10.8)
[2024-10-14 19:41] LABS: Potassium 3.9 mmol/L (3.5-5.1)
[2024-10-14 19:42] LABS: Anion Gap 5 (5-15); Calcium 9.9 mg/dL (8.7-10.4)
[2024-10-14 19:50] LABS: Blood Urea Nitrogen 8 mg/dL (9-23); Carbon Dioxide 32 mmol/L (20-31); Chloride 96 mmol/L (98-107); Glucose 339 mg/dL (74-106); Sodium 133 mmol/L (136-145)
[2024-10-15 00:26] VITALS: TEMP 98.2
[2024-10-15 00:33] VITALS: PULSE 77; RESP 19; O2SAT 94
[2024-10-15] MEDS ORDERED: DEXTROSE (50%) 50ML SYRG IV PRN ×2 (01:15→07:30)
[2024-10-15 02:00] LABS: COVID19 ANTIGEN SOFIA FIA NEGATIVE (NEGATIVE)
[2024-10-15 02:01] LABS: Rapid Influenza A Negative (Negative); Rapid Influenza B Negative (Negative)
--- NOTE | 2024-10-15 03:08 | DVHHPRES ---
History of Present Illness Resident Creating Document: JENNY TINAJERO RESIDENT History of Present Illness This is a 49-year-old male with past medical history of hypertension, hyperlipidemia, CAD with status post PTCA x2 stent, type 2 diabetes mellitus presented to the ED with a chief complaint of chest pain and cough since prior to this admission. The patient states that he started having fever the highest temperature recorded 104, cough with productive yellowish sputum, shortness of breath and chest pain especially during coughing, which was sharp, continuous 10/10, nonradiating and associated with shortness of breath and dizziness. Patient also mentioned he had an NV in 2019 and underwent PTCA x2 with stent. He denies abdominal pain, blurry vision, nausea, vomiting, dysuria, hematuria sick contact or any change in bowel and bladder movement. PCP: Dr. Espinoza Past Medical History Hypertension, hyperlipidemia, CAD, type 2 diabetes mellitus Past Surgical History PTCA X 2 stents, Lt knee surgery. Family History None Past Social History Lives alone Non smoker, social drinker and never tried any drugs Review of Systems Constitutional: No: Fever, Chills, Sweats, Weakness, Malaise, Other Eyes: No: Pain, Vision change, Conjunctivae inflammation, Eyelid inflammation, Other, Redness ENT: No: Ear pain, Ear discharge, Nose pain, Nose discharge, Nose congestion, Mouth pain, Mouth swelling, Throat pain, Throat swelling, Other Respiratory: Cough, Shortness of breath, Sputum; No: Dry, SOB with excertion, Wheezing, Hemoptysis, Pleuritic Pain, Wheezing, Other Cardiovascular: Chest Pain; No: Palpitations, Orthopnea, Paroxysmal Noc. Dyspnea, Edema, Lt Headedness, Other Gastrointestinal: No: Nausea, Vomiting, Abdominal Pain, Diarrhea, Constipation, Melena, Hematochezia, Other Genitourinary: No Dysuria, No Frequency, No Incontinence, No Hematuria, No Retention, No Other Musculoskeletal: No: other, neck pain, shoulder pain, arm pain, back pain, hand pain, leg pain, foot pain Skin: No: Rash, Lesions, Jaundice, Bruising, Other Neurological: No: Weakness, Numbness, Incoordination, Change in speech, Confusion, Seizures, Other Allergies: Coded Allergies: NO KNOWN ALLERGIES (Unverified , 05/27/19) Medications Current Medications Medications Dose Ordered Sig/Vik Route Start Time Stop Time Status Last Admin Dose Admin Diagnostic Test (Pha) 1 strip ACHS 10/15/24 07:00 Insulin Human Regular HS SC 10/15/24 22:00 Insulin Human Regular AC SC 10/15/24 07:00 Dextrose 50 ml UD PRN IV 10/15/24 01:15 Insulin Glargine 20 units QAM SC 10/15/24 07:00 Exam Vital Signs Vital Signs Date Time Temp Pulse Resp B/P (MAP) Pulse Ox O2 Delivery O2 Flow Rate FiO2 10/15/24 00:33 77 19 94 Nasal Cannula* 2 28 10/15/24 00:26 98.2 121/80 (94) 98.2 Exam Physical examination: General Appearance: Alert, Oriented X3, Cooperative, mild distress HEENT: Atraumatic, PERRLA, EOMI, Mucous membrane moist/pink Respiratory: Clear to auscultation, Normal air movement Cardiovascular: Regular rate, Normal S1, Normal S2, No murmurs, no chest wall tenderness Abdominal: Normal bowel sounds, Soft, No tenderness, No hepatospenomegaly, No masses Extremities: No clubbing, No cyanosis, No edema, Normal pulses, No tenderness/swelling Skin: No rashes, No breakdown, No significant lesion Neuro: Normal gait, Normal speech, Strength at 5/5 X4 ext, Normal tone, Sensation intact, grossly intact cranial nerves. Psych/Mental Status: Mental status NL, Mood NL Labs/Xrays Labs Test 10/15/24 00:35 10/14/24 15:27 Range/Units Influenza Type A Antigen Negative Negative Influenza Type B Antigen Negative Negative SARS-CoV-2 Antigen (Rapid) Negative NEGATIVE White Blood Count 4.7 4.4-10.8 10^3/uL Red Blood Count 5.70 4.5-5.90 10^6/uL Hemoglobin 17.3 13.5-17.5 g/dL Hematocrit 50.1 41.0-53.0 % Mean Corpuscular Volume 87.9 80.0-100.0 fL Mean Corpuscular Hemoglobin 30.4 28.0-32.0 pg Mean Corpuscular Hemoglobin Concent 34.5 32.0-36.0 g/dL Red Cell Distribution Width 13.3 11.8-14.3 % Platelet Count 150 140-450 10^3/uL Mean Platelet Volume 10.5 6.9-10.8 fL Neutrophils (%) (Auto) 62.3 37.0-80.0 % Lymphocytes (%) (Auto) 26.2 10.0-50.0 % Monocytes (%) (Auto) 8.7 0.0-12.0 % Eosinophils (%) (Auto) 2.4 0.0-7.0 % Basophils (%) (Auto) 0.4 0.0-2.0 % Neutrophils # (Auto) 2.9 1.6-8.6 10 ^3/uL Lymphocytes # (Auto) 1.2 0.4-5.4 10 ^3/uL Monocytes # (Auto) 0.4 0-1.3 10 ^3/uL Eosinophils # (Auto) 0.1 0-0.8 10 ^3/uL Basophils # (Auto) 0 0-0.2 10 ^3/uL Nucleated Red Blood Cells 0.5 % D-Dimer, Quantitative 0.53 H 0.0-0.49 mg/L FEU Sodium Level 133 L 136-145 mmol/L Potassium Level 3.9 3.5-5.1 mmol/L Chloride Level 96 L 98-107 mmol/L Carbon Dioxide Level 32 H 20-31 mmol/L Anion Gap 5 5-15 Blood Urea Nitrogen 8 L 9-23 mg/dL Creatinine 1.00 0.700-1.30 mg/dL Glomerular Filtration Rate Calc 92 >90 mL/min BUN/Creatinine Ratio 8.0 L 10.0-20.0 Serum Glucose 339 H 74-106 mg/dL Hemoglobin A1c 11.1 H <5.7 % A1C Calcium Level 9.9 8.7-10.4 mg/dL Troponin I High Sensitivity 3 L </=54 ng/L B-Type Natriuretic Peptide 34.32 0-100 pg/mL Thyroid Stimulating Hormone (TSH) 3.20 0.55-4.78 uIU/mL Assessment/Plan Assessment/Plan Assessment and plan: # Chest pain rule out ACS - Initial EKG and troponins were unremarkable - Patient was given aspirin 325 mg p.o. once - Ordered echo, UDS - Continue aspirin 8 1 mg p.o. daily and atorvastatin 40 mg at HS # Ruled out pulmonary embolism - Pt is in room air without any tachycardia - D-dimer is elevated - Well's score for PE is 1; low risk group 1.3% chance of PE # Type 2 Diabetes mellitus, HbA1c 11.2% - Lantus 20 units at Q.A.M and moderate sliding scale of insulin. # PUD prophylaxis - Pepcid 20 mg p.o. daily # DVT prophylaxis - Not recommended as patient is mobile Goal of care discussed with the patient for more than 17 minutes full code Plan discussed with Dr. Jiang Plan discussed with: Patient, Other My Orders Orders - JENNY TINAJERO Procedure Category Date Status Time Admit ADMIT 10/14/24 Transmitted 22:12 Urinalysis LAB 10/14/24 Logged 22:15 Drug Screen LAB 10/14/24 Logged 22:15 Echo 2d Mode Cardiac US 10/14/24 Logged DOP 22:15 Respiratory Culture LORRAINE 10/14/24 Logged W/ Gs 22:17 Glucose Blood PHA 10/15/24 In Process (Accu-Chek Comfort 07:00 Insulin R (Human) PHA 10/15/24 In Process (Insulin R) 22:00 Insulin R (Human) PHA 10/15/24 In Process (Insulin R) 07:00 Dextrose 50% Syringe PHA 10/15/24 In Process 01:15 Insulin Lantus PHA 10/15/24 In Process (Glargine) (Lantus) 07:00 Cardiac DIET 10/15/24 Transmitted Diet-2gna,Lofat,Lochol Breakfast Code Status CODE 10/15/24 Transmitted 01:05 Date of Service: Oct 14, 2024 Billing Provider: VITO JIANG MD Common Visit Codes: 04630-QHNSALT INP/OBS CARE (HIGH) JENNY TINAJERO RESIDENT Oct 15, 2024 03:08 VITO JIANG MD Oct 15, 2024 11:23
[2024-10-15] MEDS: MORPHINE SULFATE INJ 2 MG/ml SYRG IV ONE ×2 (05:00→07:50)
--- NOTE | 2024-10-15 06:44 | ECG ---
[facility] Test Date: 2024-10-15 Test Time: 00:25:07 Pat Name: ADNNY HERRING Department: ER Room: [address] [place] [address] Gender: M Photogrammetric Surveyor: : 1975 Requested By: SABIHA NOBLES Order Number: [id number] Reading MD: Tod Renee Measurements Intervals [place] Rate: 83 P: 61 NM: 145 QRS: 72 QRSD: 101 T: -12 QT: 390 QTc: 459 Interpretive Statements Sinus rhythm Multiple ventricular premature complexes Borderline T abnormalities, inferior leads Electronically Signed On 10-15-2024 8:40:43 PST by Tod Renee Please click the below link to view image of tracing.
[2024-10-15 07:00] VITALS: O2SAT 92
[2024-10-15] MEDS: ACCU-CHEK COMFORT CURVE STRIP VI SCH ×2 (07:50→11:54)
[2024-10-15] MEDS: INSULIN LANTUS (GLARGINE) 1 /0.01ml (100units/ml) SC SCH (07:50)
[2024-10-15] MEDS: InsuLIN REG 1unit/0.01ml Soln (100units/ml) SC SCH ×2 (07:50→11:30)
[2024-10-15 08:36] VITALS: BP 116/76; PULSE 78; RESP 15
[2024-10-15] MEDS: ASPirin-EC 81 mg tab PO SCH ×2 (09:40)
--- NOTE | 2024-10-15 11:56 | DVHSR ---
APPROVED REPORT EXAM: Two-dimensional and M-mode echocardiogram with Doppler and color Doppler. Blood Pressure: 129/78 mmHg INDICATION Chest Pain RISK FACTORS Height: 74, Weight: 274 DIMENSIONS LVDd (3.8-5.7cm)LA (2D)4.2 (1.9-4.0cm)Aortic Root (2.0-3.7cm) EF (%) 55.0 (55-70%)Rt. Atrium4.9 (1.9-4.0cm)Asc. Aorta cm Mitral Valve MitralMitral Stenosis E wave0.71m/sMV Mean GR.2mmHg A wave1.00m/sMV Peak GR.4mmHg E/A ratio0.72D MVAcm2 DECEL [id number] 1/2 [id number] IVRTmsDop MVA2.40cm2 Aortic Valve Aortic ValveAortic Stenosis V11.06m/Leonides Mean GR.7mmHg V21.68m/Leonides Peak GR.11mmHg LEFT VENTRICLE Normal left ventricular size. Wall thickness is normal. Ejection fraction is normal and is estimate d at 55-60% based on visual estimate. No regional wall motion abnormalities. Diastolic function emily ears to be preserved. E to E prime ratio is in the normal range. RIGHT VENTRICLE The right ventricle is of normal size and systolic function. ATRIA Both atria are of normal size. MITRAL VALVE Normal structure and function. No significant mitral regurgitation. PULMONIC VALVE Not well visualized. TRICUSPID VALVE Normal structure and function. The PA systolic pressure could not be adequately estimated. AORTIC VALVE No evidence of significant stenosis or regurgitation. GREAT VESSELS Not well visualized. PERICARDIAL EFFUSION No significant effusion. IVC is of normal size and collapses normally with inspiration. Other Information Technically limited study due to body habitus and patient position. Conclusion Normal left ventricular size and systolic function. Normal right ventricular size and systolic function. No hemodynamically significant valvular disease. PA systolic pressure could not be adequately estimated.
[2024-10-15] MEDS ORDERED: ATORVASTATIN 20 MG TAB PO SCH ×2 (22:00)
[2024-10-15] MEDS ORDERED: InsuLIN REG 1unit/0.01ml Soln (100units/ml) SC SCH ×2 (22:00)
--- NOTE | 2024-10-16 00:36 | DVHDS2 ---
Discharge Summary Date of Admission Oct 14, 2024 at 22:12 Date of Discharge: Oct 15, 2024 Labs/Diagnostic Data: Laboratory Results Test 10/15/24 11:18 10/15/24 00:35 10/14/24 15:27 POC Glucose 566 mg/dl (70-106) Influenza Type A Antigen Negative (Negative) Influenza Type B Antigen Negative (Negative) SARS-CoV-2 Antigen (Rapid) Negative (NEGATIVE) White Blood Count 4.7 10^3/uL (4.4-10.8) Red Blood Count 5.70 10^6/uL (4.5-5.90) Hemoglobin 17.3 g/dL (13.5-17.5) Hematocrit 50.1 % (41.0-53.0) Mean Corpuscular Volume 87.9 fL (80.0-100.0) Mean Corpuscular Hemoglobin 30.4 pg (28.0-32.0) Mean Corpuscular Hemoglobin Concent 34.5 g/dL (32.0-36.0) Red Cell Distribution Width 13.3 % (11.8-14.3) Platelet Count 150 10^3/uL (140-450) Mean Platelet Volume 10.5 fL (6.9-10.8) Neutrophils (%) (Auto) 62.3 % (37.0-80.0) Lymphocytes (%) (Auto) 26.2 % (10.0-50.0) Monocytes (%) (Auto) 8.7 % (0.0-12.0) Eosinophils (%) (Auto) 2.4 % (0.0-7.0) Basophils (%) (Auto) 0.4 % (0.0-2.0) Neutrophils # (Auto) 2.9 10 ^3/uL (1.6-8.6) Lymphocytes # (Auto) 1.2 10 ^3/uL (0.4-5.4) Monocytes # (Auto) 0.4 10 ^3/uL (0-1.3) Eosinophils # (Auto) 0.1 10 ^3/uL (0-0.8) Basophils # (Auto) 0 10 ^3/uL (0-0.2) Nucleated Red Blood Cells 0.5 % D-Dimer, Quantitative 0.53 mg/L FEU (0.0-0.49) Sodium Level 133 mmol/L (136-145) Potassium Level 3.9 mmol/L (3.5-5.1) Chloride Level 96 mmol/L (98-107) Carbon Dioxide Level 32 mmol/L (20-31) Anion Gap 5 (5-15) Blood Urea Nitrogen 8 mg/dL (9-23) Creatinine 1.00 mg/dL (0.700-1.30) Glomerular Filtration Rate Calc 92 mL/min (>90) BUN/Creatinine Ratio 8.0 (10.0-20.0) Serum Glucose 339 mg/dL (74-106) Hemoglobin A1c 11.1 % A1C (<5.7) Calcium Level 9.9 mg/dL (8.7-10.4) Troponin I High Sensitivity 3 ng/L (</=54) B-Type Natriuretic Peptide 34.32 pg/mL (0-100) Thyroid Stimulating Hormone (TSH) 3.20 uIU/mL (0.55-4.78) Other Laboratory Tests 10/14/24 15:27 Brief Hx & Hospital Course: HPI: 49-year-old male with past medical history of hypertension, hyperlipidemia, CAD with status post PTCA x2 stent, type 2 diabetes mellitus presented to the ED with a chief complaint of chest pain and cough since prior to this admission. The patient states that he started having fever the highest temperature recorded 104, cough with productive yellowish sputum, shortness of breath and chest pain especially during coughing, which was sharp, continuous 10/10, nonradiating and associated with shortness of breath and dizziness. Patient left without being seen around noon of 10/15/2024, patient left AMA AMA, did not sign AMA papers. Condition at Discharge: Undetermined Final Diagnosis/Problems List Left against medical advice Discharge Disposition: AMA Discharge Statement: "Patient was advised to return to the ER or call 911 if any headaches, dizziness, shortness of breath, chest pain, abdominal pain, bleeding, fevers, or worsening of medical condition. Patient was counseled about treatment plan, medications, possible side effects, patientverbalized understanding. All questions were answered to the best of my ability. This discharge took greater then 30 minutes in planning, reviewing documentation, counseling the patient, and discussing with other team members." ASSESSMENT ASSESSMENT Assessment Date of Service: Oct 15, 2024 Billing Provider: ARISTIDES NÚÑEZ MD Common Visit Codes: NOT BILLABLE ARISTIDES NÚÑEZ MD Oct 16, 2024 00:36
[2024-10-16] MEDS ORDERED: INSULIN LANTUS (GLARGINE) 1 /0.01ml (100units/ml) SC SCH (07:00)
== END 2024-10-15 13:55 | disposition left against medical advice (07) | DRG 203 ==
LOC: ER 13:13 → TELE 22:12 → UNDODISIN 22:14
PROVIDERS: ATTEND Student in an Organized Health Care Education/Training Program
DX: R07.89 Other chest pain (principal); E11.9 Type 2 diabetes mellitus without complications; R05.9 Cough, unspecified; E78.5 Hyperlipidemia, unspecified; Z20.822 Contact with and (suspected) exposure to COVID-19; Z53.29 Procedure and treatment not carried out because of patient's decision for other reasons; Z79.2 Long term (current) use of antibiotics; Z79.899 Other long term (current) drug therapy; Z79.82 Long term (current) use of aspirin; R09.1 Pleurisy; Z98.61 Coronary angioplasty status; I10 Essential (primary) hypertension; R06.02 Shortness of breath; R50.9 Fever, unspecified
CPT/HCPCS: 36415; 71045; 80048; 82962; 83036; 83880; 84443; 84484; 85025; 85379; 87426; 87804; 93005; 93306; 99291; G0378; J1815